=== PATIENT | male | born 1975 | race Two or more races ===

== ENCOUNTER → 2019-01-21 | Outpatient (CLI) | payer OTHER ==
[~2019-01-21] MED LIST: OMNIPAQUE 350 MG/ML, 100ML BOTTLE ONE
== END | disposition home or self-care (01) ==
LOC: CFH 11:09
PROVIDERS: ATTEND Family Medicine
DX: R10.31 Right lower quadrant pain (principal)
CPT/HCPCS: 74177; Q9967